=== PATIENT | female | born 1960 | race Caucasian/White ===

== ENCOUNTER 2021-11-25 14:38 | Outpatient (CLI) | payer BC | END 2021-11-25 14:39 | disposition home or self-care (01) | LOC: BICULT 14:38 | PROVIDERS: ATTEND Urology | DX: N39.0 Urinary tract infection, site not specified (principal) | CPT/HCPCS: 76770 ==

== ENCOUNTER 2025-02-21 01:33 | Observation (INO) | payer BC ==
[2025-02-21] MEDS ORDERED: Ondansetron PF 4 MG/2 ML Vial IVP PRN (04:39)
[2025-02-21] MEDS ORDERED: Acetaminophen 325 MG TAB PO PRN (04:39)
[2025-02-21] MEDS ORDERED: Calcium Carbonate 500 MG ChewTAB PO PRN (04:39)
[2025-02-21 04:40] VITALS: BMI 35.4
[2025-02-21] MEDS ORDERED: Electrolyte Replacement Protocol 1 EACH FS PRN (04:45)
[2025-02-21 05:20] LABS: #Basophils 0.03 10x3/uL (0.0-0.2); #Eosinophils 0.11 10x3/uL (0.0-0.7); #Monocytes 0.54 10x3/uL (0.11-0.59); #Neutrophils 3.98 10x3/uL (1.40-6.50); %Basophils 0.4 % (0.0-1.0); %Eosinophils 1.6 % (0.0-10.0); %Lymphocytes 29.9 % (21.0-51.0); %Monocytes 8.1 % (0.0-10.0); %Neutrophils 59.7 % (42.0-75.0); Hematocrit 40.0 % (36.0-47.0); Hemoglobin 12.8 g/dL (12.0-16.0); Mean Corpuscular Hemoglobin 28.7 pg (27.0-31.0); Mean Corpuscular Volume 89.7 fL (78.0-98.0); Platelet Count 237 10x3/uL (130-400); Red Blood Cell (RBC) Count 4.46 mill/uL (4.20-5.40); White Blood Cell (WBC) Count 6.68 10x3/uL (4.8-10.8)
[2025-02-21 05:37] LABS: ALT (SGPT) 18 U/L (Less than 34); AST (SGOT) 15 U/L (11-34); Albumin 3.5 g/dL (3.1-4.5); Alkaline Phosphatase 74 U/L (40-110); Anion Gap 13 mmol/L (10-20); BUN (Urea Nitrogen) 14 mg/dL (9.8-20.1); Bilirubin, Total 0.3 mg/dL (0.3-1.2); Calc. Creatinine Clearance 120 mL/min (70-130); Calcium 8.9 mg/dL (7.8-10.44); Carbon Dioxide 25 mmol/L (23-31); Chloride 110 mmol/L (98-107); Globulin 2.5 g/dL (2.4-3.5); Glucose 108 mg/dL (80-115); Potassium 3.9 mmol/L (3.5-5.1); Sodium 144 mmol/L (136-145)
[2025-02-21] MEDS ORDERED: Aspirin 81 mg Enteric Coated Tablet PO SCH (09:00)
[2025-02-21] MEDS: Pantoprazole 40 MG DR.TAB PO SCH (10:27)
[2025-02-21] MEDS: Aspirin Chewable 81 MG TAB PO SCH (10:27)
[2025-02-21] MEDS: Rosuvastatin 20 MG TAB PO SCH (10:28)
[2025-02-22 04:38] LABS: #Basophils 0.04 10x3/uL (0.0-0.2); #Eosinophils 0.23 10x3/uL (0.0-0.7); #Monocytes 0.64 10x3/uL (0.11-0.59); #Neutrophils 3.65 10x3/uL (1.40-6.50); %Basophils 0.6 % (0.0-1.0); %Eosinophils 3.5 % (0.0-10.0); %Lymphocytes 30.6 % (21.0-51.0); %Monocytes 9.7 % (0.0-10.0); %Neutrophils 55.3 % (42.0-75.0); Hematocrit 40.8 % (36.0-47.0); Hemoglobin 13.2 g/dL (12.0-16.0); Mean Corpuscular Hemoglobin 29.1 pg (27.0-31.0); Mean Corpuscular Volume 89.9 fL (78.0-98.0); Platelet Count 233 10x3/uL (130-400); Red Blood Cell (RBC) Count 4.54 mill/uL (4.20-5.40); White Blood Cell (WBC) Count 6.60 10x3/uL (4.8-10.8)
[2025-02-22 05:03] LABS: ALT (SGPT) 16 U/L (Less than 34); AST (SGOT) 18 U/L (11-34); Albumin 3.4 g/dL (3.1-4.5); Alkaline Phosphatase 76 U/L (40-110); Anion Gap 12 mmol/L (10-20); BUN (Urea Nitrogen) 15 mg/dL (9.8-20.1); Bilirubin, Total 0.2 mg/dL (0.3-1.2); Calc. Creatinine Clearance 113 mL/min (70-130); Calcium 8.9 mg/dL (7.8-10.44); Carbon Dioxide 25 mmol/L (23-31); Chloride 110 mmol/L (98-107); Globulin 2.7 g/dL (2.4-3.5); Glucose 109 mg/dL (80-115); Potassium 4.0 mmol/L (3.5-5.1); Sodium 143 mmol/L (136-145)
[2025-02-22] MEDS: TICAGRELOR 90 MG TABLET PO SCH (08:01)
[2025-02-22 11:49] VITALS: BP 143/90; TEMP 97.8
== END 2025-02-22 13:00 | disposition home or self-care (01) ==
LOC: 2SE 04:03
PROVIDERS: ADMIT Student in an Organized Health Care Education/Training Program; ATTEND Internal Medicine
DX: R20.2 Paresthesia of skin (principal); G51.39 Clonic hemifacial spasm, unspecified; I25.10 Atherosclerotic heart disease of native coronary artery without angina pectoris; E78.5 Hyperlipidemia, unspecified; K21.9 Gastro-esophageal reflux disease without esophagitis; J45.909 Unspecified asthma, uncomplicated; Z91.040 Latex allergy status; Z88.5 Allergy status to narcotic agent; Z88.0 Allergy status to penicillin; Z88.2 Allergy status to sulfonamides; Z79.82 Long term (current) use of aspirin; Z79.899 Other long term (current) drug therapy
CPT/HCPCS: 36415; 70551; 80053; 85025; 93306; 93880; G0378